=== PATIENT | female | born 1990 | race Caucasian/White ===

== ENCOUNTER → 2019-10-02 | Outpatient (CLI) | payer MEDICAID ==
[~2019-10-02] VITALS: Ht 171.4 cm; Wt 72.6 kg
[~2019-10-02] MED LIST: CITA-77; TRAM50TA2
== END | disposition home or self-care (01) ==
LOC: Rad HDHVI 13:25
PROVIDERS: ATTEND Internal Medicine Cardiovascular Disease
DX: I47.1 Supraventricular tachycardia (principal); R07.89 Other chest pain; R00.2 Palpitations; R42 Dizziness and giddiness; Z82.49 Family history of ischemic heart disease and other diseases of the circulatory system; R06.02 Shortness of breath
CPT/HCPCS: 93017; 93306